=== PATIENT | male | born 1990 | race African-American/Black ===

== ENCOUNTER 2017-09-26 00:13 | Emergency (ER) | payer SELFPAY ==
[~2017-09-26] VITALS: Ht 190.5 cm; Wt 96.2 kg
[~2017-09-26 00:13] MED LIST: FLOMAX0.4 MG PO; NAPROSYN500 MG PO; NOHOMEMEDS; PERCOCET 5/31 TABLET PO; ZOFRAN4 MG PO
[2017-09-26] MEDS ORDERED: NORCO 5/3251 TABLET PO (04:02)
[2017-09-26] MEDS ORDERED: NAPROSYN500 MG PO (04:02)
[2017-09-26 04:24] VITALS: BP 120/91
== END 2017-09-26 04:24 | disposition home or self-care (01) ==
LOC: EME 00:13
DX: M70.52 Other bursitis of knee, left knee (principal); Z86.2 Personal history of diseases of the blood and blood-forming organs and certain disorders involving the immune mechanism
CPT/HCPCS: 73564; 93971; 99281; 99284